=== PATIENT | male | born 1995 | race Hispanic/Latino ===

== ENCOUNTER 2023-08-31 19:45 | Emergency (ER) | payer SELFPAY ==
[2023-08-31] MEDS ORDERED: Ibuprofen 200 MG TAB ONE (20:15)
[2023-08-31] MEDS ORDERED: Acetaminophen 500 MG TAB ONE (20:15)
[2023-08-31 21:01] LABS: SARS-CoV-2 NAA Rapid Test Not Detected (NotDetected)
== END 2023-08-31 21:30 | disposition home or self-care (01) ==
LOC: CSHERS 19:45
DX: J10.1 Influenza due to other identified influenza virus with other respiratory manifestations (principal); Z20.822 Contact with and (suspected) exposure to COVID-19; Z87.891 Personal history of nicotine dependence
CPT/HCPCS: 99283